=== PATIENT | female | born 1985 | race Caucasian/White ===

== ENCOUNTER 2017-05-02 10:17 | Emergency (ER) | payer MEDICAID ==
[~2017-05-02] VITALS: Wt 67.5 kg
[~2017-05-02 10:17] MED LIST: PREN-93 PO
[2017-05-02] MEDS ORDERED: LIDOCAINE/MYLANTA 40 ML BTL PO ONE (12:00)
--- NOTE | 2017-05-02 12:11 | ERD ---
ER Documentation Chief Complaint Date/Time DATE: 05/02/17 TIME: 12:10 Chief Complaint BACK PAIN, SOB, CHEST WALL PAIN, ON AND OFF HPI 30-year-old female presents with anterior mid chest pain that has been on and off since last night radiating to her back. She describes as achy, pressure- like, and states that she feels like she cannot swallow. Pain has been intermittent, this has occurred previous in the past that resolved on its own, and 3 times since last night. ROS All systems reviewed and are negative except as per history of present illness. Medications Home Meds Active Scripts Ranitidine Hcl* (Zantac*) 150 Mg Tablet, 150 MG PO BID Y for EPIGASTRIC PAIN, # 30 TAB Prov:TED SOTELO PA-C 05/02/17 Reported Medications Vit No.124/Iron/FA ( Vitamin Tablet) 1 Each Tablet, 1 EACH PO 06/24/15 Allergies Allergies: Coded Allergies: Penicillins (Verified Allergy, Mild, RASH, 05/02/17) PMhx/Soc Medical and Surgical Hx: pt denies Medical Hx, pt denies Surgical Hx Hx Alcohol Use: No Hx Substance Use: No Hx Tobacco Use: No Smoking Status: Never smoker Physical Exam Vitals Vital Signs Date Time Temp Pulse Resp B/P Pulse Ox O2 Delivery O2 Flow Rate FiO2 05/02/17 10:20 98.4 83 17 128/90 98 Physical Exam General: Well-developed, well-nourished. The patient appears in no acute distress. HEENT: Head is normocephalic, atraumatic. No scleral icterus. Pupils are equal , round, and reactive. Oral mucous membranes are moist. No pharyngeal erythema. Neck: Supple. Nontender. Lungs: Clear to auscultation. Normal air movement. Heart: Regular rate and rhythm. S1 and S2 are normal. No murmurs, gallops, or rubs. Abdomen: Soft, nontender, nondistended. Bowel sounds are normoactive. Extremities: No clubbing or cyanosis. Normal pulses. Moving extremities x 4. No weakness. Neurologic: Alert and oriented 3. No focal deficits. Skin: Normal turgor. No rash or lesions. Result Diagram: 05/02/17 1220 05/02/17 1220 Results 24 hrs Laboratory Tests Test 05/02/17 12:20 White Blood Count 9.110^3/ul Red Blood Count 4.3510^6/ul Hemoglobin 13.9g/dl Hematocrit 40.7% Mean Corpuscular Volume 93.6fl Mean Corpuscular Hemoglobin 32.0pg Mean Corpuscular Hemoglobin Concent 34.2g/dl Red Cell Distribution Width 12.0% Platelet Count 08832^3/UL Mean Platelet Volume 11.1fl Neutrophils % 63.8% Lymphocytes % 25.2% Monocytes % 8.3% Eosinophils % 1.7% Basophils % 0.7% Nucleated Red Blood Cells % 0.0/100WBC Lymphocytes # 2.310^3/ul Monocytes # 0.810^3/ul Eosinophils # 0.210^3/ul Basophils # 0.110^3/ul Nucleated Red Blood Cells # 0.010^3/ul Sodium Level 139mmol/L Potassium Level 3.8mmol/L Chloride Level 104mmol/L Carbon Dioxide Level 29mmol/L Anion Gap 10 Blood Urea Nitrogen 16mg/dl Creatinine 0.80mg/dl Glucose Level 91mg/dl Calcium Level 9.1mg/dl Troponin I < 0.012ng/ml Lipase 102U/L Serum HCG, Qualitative NEGATIVE Current Medications Medications (Trade) Dose Ordered Sig/Randall Route PRN Reason Start Time Stop Time Status Last Admin Dose Admin Miscellaneous Medication (Gi Cocktail (2)) 40 ml ONCE ONCE PO 05/02/17 12:00 05/02/17 12:01 DC 05/02/17 12:18 12-lead EKG(interpreted by supervising physician): Dr. Reed Rate/Rhythm: Normal Sinus Rhythm, rate of 66 QRS, ST, T-waves: No changes consistent w/ acute ischemia, no intervals, no dysrhythmias, no ectopy Impression: No evidence of ischemia or arrhythmia DIAGNOSTIC IMAGING REPORT Patient: BELLA HDZ : 1985 Age: 31 Sex: F MR #: [id number] [facility] #: [id number] DOS: 05/02/17 1155 Ordering MD: TED SOTELO PA-C Location: [facility] Room/Bed: PROCEDURE: Chest Radiograph. CLINICAL INDICATION: Chest pain TECHNIQUE: Single frontal chest radiograph. COMPARISON: None available FINDINGS: The cardiomediastinal silhouette is within normal limits. No infiltrate or effusion is seen. The bones are intact. IMPRESSION: 1. Unremarkable chest radiograph. RPTAT: AA .Choco Blackburn MD, Date Time Electronically viewed and signed by .Choco Blackburn MD, MD on 2016 12:21 .B/ CC: TED SOTELO PA-C Procedures/MDM ED course: Patient was given a GI cocktail. Medical decision makin-year-old female comes in with chest pain has been intermittent since last night, it is in the center of her chest and is most consistent with likely GERD. Patient's examination is benign, she does not have any adventitious breath sounds, respiratory distress. Patient's history is not consistent with pulmonary embolus as it is intermittent chest pain, and she really does not complain of dyspnea. EKG, chest x-ray all labs are normal, troponin was negative. She was trialed on a GI cocktail in the emergency department she states that she is feeling much better at this time and will be sent home with ranitidine. Differentials include acute coronary syndrome, dissection, pulmonary embolus, pneumonia, pneumothorax and among others. Departure Diagnosis: Primary Impression: Chest pain Condition: Good TED SOTELO PA-C May 02, 2017 12:11
--- NOTE | 2017-05-02 12:21 | RADRPT ---
PROCEDURE: Chest Radiograph. CLINICAL INDICATION: Chest pain TECHNIQUE: Single frontal chest radiograph. COMPARISON: None available FINDINGS: The cardiomediastinal silhouette is within normal limits. No infiltrate or effusion is seen. Th e bones are intact. IMPRESSION: 1. Unremarkable chest radiograph. RPTAT: AA .Choco Blackburn MD, MD Date Time Electronically viewed and signed by .Choco Blackburn MD, on 05/02/2017 12:21 .B/
[2017-05-02 12:32] LABS: BASOPHIL # 0.1 10^3/ul (0.0-0.1); BASOPHILS % 0.7 % (0.0-2.0); EOSINOPHILS # 0.2 10^3/ul (0.0-0.5); EOSINOPHILS % 1.7 % (0.0-7.0); HEMATOCRIT 40.7 % (37.0-47.0); HEMOGLOBIN 13.9 g/dl (12.0-16.0); LYMPHOCYTES # 2.3 10^3/ul (0.8-2.9); LYMPHOCYTES % 25.2 % (15.0-51.0); MEAN CORPUSCULAR HGB CONC 34.2 g/dl (32.0-37.0); MEAN CORPUSCULAR VOLUME 93.6 fl (82.0-101.0); MEAN PLATELET VOLUME 11.1 fl (7.4-10.4); MONOCYTE # 0.8 10^3/ul (0.3-0.9); MONOCYTES % 8.3 % (0.0-11.0); NEUTROPHILS % 63.8 % (39.0-77.0); PLATELET COUNT 218 10^3/UL (140-415); RED BLOOD COUNT 4.35 10^6/ul (4.20-5.40); WHITE BLOOD COUNT 9.1 10^3/ul (4.8-10.8)
[2017-05-02 12:55] LABS: ANION GAP 10 (8-16); BLOOD UREA NITROGEN 16 mg/dl (7-20); CALCIUM 9.1 mg/dl (8.4-10.2); CARBON DIOXIDE 29 mmol/L (21-31); CHLORIDE 104 mmol/L (97-110); GLUCOSE 91 mg/dl (70-220); POTASSIUM 3.8 mmol/L (3.5-5.1); SODIUM 139 mmol/L (135-144)
[2017-05-02 13:07] LABS: TROPONIN-I < 0.012 ng/ml (0.00-0.12)
[2017-05-02] MEDS ORDERED: RANI150T9 PO (13:14)
== END 2017-05-02 13:28 | disposition home or self-care (01) ==
LOC: FTE 10:17
DX: R07.89 Other chest pain (principal)
CPT/HCPCS: 36415; 71010; 80048; 83690; 84484; 84703; 85025; 93005; Z7502; Z7610

== ENCOUNTER 2018-06-17 12:19 | Inpatient (IN) | END 2018-06-20 16:05 | disposition home or self-care (01) | DRG 785 ==